=== PATIENT | male | born 1995 | race Two or more races ===

== ENCOUNTER → 2025-03-06 | Emergency (ER) | payer OTHER ==
[~2025-03-06] VITALS: Ht 165.1 cm; Wt 68.0 kg
[~2025-03-06] MED LIST: ADDERALL 20 MG20 MG PO; AMOX1TAB5 PO; DICLOFENAC POTA50 MG PO; INTESTINEX680 M1 PO
== END | disposition left against medical advice (07) ==
LOC: ER 02:25
DX: Z53.21 Procedure and treatment not carried out due to patient leaving prior to being seen by health care provider (principal)